=== PATIENT | male | born 1995 | race Caucasian/White ===

== ENCOUNTER 2018-01-19 16:07 | Emergency (ER) | payer MEDICAID ==
[~2018-01-19] VITALS: Ht 167.6 cm; Wt 90.7 kg
[2018-01-19 16:11] VITALS: BP 126/65
--- NOTE | 2018-01-19 16:14 | NUR ---
PT AMBULATED TO BED 7, REPORT TO MINGO LOPEZ
--- NOTE | 2018-01-19 16:35 | NUR ---
PT. CAME INTO THE ED FOR A MED REFILL FOR R HAND PAIN. PT. STATES " I NEED MEDICATION AFTER I LOST MY PRESCRIPTION FOR R HAND , I INJURED IT LIKE A WEEK AGO. 01/16 R HAND PAIN AND DESCRIBED SHARP. NO SWELLING NOTED TO R HAND CAP REFILL LESS THAN 3 SEC. ER MD NOTIFIED. WILL CONTINUE TO MONITOR.
[2018-01-19 17:28] VITALS: BP 126/65
--- NOTE | 2018-01-19 17:28 | NUR ---
Patient discharged with v/s stable. Written and verbal after care instructions given and explained. Patient alert, oriented and verbalized understanding of instructions. Ambulatory with steady gait. All questions addressed prior to discharge. ID band removed. Patient advised to follow up with PMD. Rx of BENYDRYL 1%-0.1% TOPICAL, NAPROSYN given. Patient educated on indication of medication including possible reaction and side effects. Opportunity to ask questions provided and answered.
== END 2018-01-19 17:28 | disposition home or self-care (01) ==
LOC: MED 16:07
DX: L25.9 Unspecified contact dermatitis, unspecified cause (principal); M25.531 Pain in right wrist; J45.909 Unspecified asthma, uncomplicated
CPT/HCPCS: 99283

== ENCOUNTER 2019-05-23 14:53 | Emergency (ER) | payer MEDICAID ==
[~2019-05-23] VITALS: Ht 167.6 cm; Wt 99.3 kg
[2019-05-23 14:55] VITALS: BP 128/90
--- NOTE | 2019-05-23 14:58 | NUR ---
TO LOBBY A/W BED AMBULATORY
--- NOTE | 2019-05-23 15:41 | NUR ---
BIB SELF C/O PENILE PAIN & REDNESS FOR 2 WEEKS. PATIENT STATES PAIN OF 0/10 AT THIS TIME. PATIENT POSITIONED FOR COMFORT; HOB ELEVATED; BEDRAILS UP X1; BED DOWN. ER MD MADE AWARE OF PT STATUS.
[2019-05-23 15:57] LABS: APPEARANCE,URINE CLEAR (CLEAR); BILIRUBIN,URINE NEGATIVE (NEGATIVE); BLOOD, URINE NEGATIVE (NEGATIVE); COLOR,URINE YELLOW (YELLOW); LEUKOCYTE ESTERASE ,URINE NEGATIVE (NEGATIVE); NITRITE, URINE NEGATIVE (NEGATIVE); PH,URINE 7.5 (5.0-9.0); UGLUCOSE NEGATIVE (NEGATIVE)
[2019-05-23 17:45] VITALS: BP 119/78
--- NOTE | 2019-05-23 17:45 | NUR ---
Patient discharged with v/s stable. Written and verbal after care instructions given and explained. Patient alert, oriented and verbalized understanding of instructions. Ambulatory with steady gait. All questions addressed prior to discharge. ID band removed. Patient advised to follow up with PMD. Rx of PROAIR HFA&BACTRIM given. Patient educated on indication of medication including possible reaction and side effects. Opportunity to ask questions provided and answered.
== END 2019-05-23 17:45 | disposition home or self-care (01) ==
LOC: MED 14:53
DX: N48.1 Balanitis (principal); J45.909 Unspecified asthma, uncomplicated; F12.10 Cannabis abuse, uncomplicated; Z98.890 Other specified postprocedural states
CPT/HCPCS: 81003; 99283; 99284

== ENCOUNTER 2019-12-07 07:45 | Emergency (ER) | payer MEDICAID ==
[~2019-12-07] VITALS: Ht 167.6 cm; Wt 79.4 kg
[2019-12-07 07:57] VITALS: BP 121/84
--- NOTE | 2019-12-07 08:00 | NUR ---
states he is homeless but allowed to sleep at friends house in [place]
[2019-12-07 08:04] VITALS: BP 121/84
== END 2019-12-07 08:04 | disposition home or self-care (01) ==
LOC: MED 07:45
DX: R06.02 Shortness of breath (principal); Z76.0 Encounter for issue of repeat prescription; J45.909 Unspecified asthma, uncomplicated; Z98.890 Other specified postprocedural states
CPT/HCPCS: 99283

== ENCOUNTER 2019-12-31 19:40 | Emergency (ER) | payer MEDICAID ==
[~2019-12-31] VITALS: Ht 167.6 cm; Wt 68.0 kg
[2019-12-31 19:49] VITALS: BP 134/71
[2019-12-31] MEDS ORDERED: NACL 0.9% 1,000 ML IV ONE (20:00)
[2019-12-31 21:07] VITALS: BP 114/65
== END 2019-12-31 21:07 | disposition home or self-care (01) ==
LOC: MED 19:40
DX: J45.909 Unspecified asthma, uncomplicated (principal)
CPT/HCPCS: 71045; 93005; 99283

== ENCOUNTER 2020-02-03 08:16 | Emergency (ER) | payer MEDICAID ==
[~2020-02-03] VITALS: Ht 167.6 cm; Wt 113.4 kg
[2020-02-03 08:21] VITALS: BP 135/76
--- NOTE | 2020-02-03 08:26 | NUR ---
PATIENT AMBULATED TO BED 3.
--- NOTE | 2020-02-03 09:02 | NUR ---
DR. WHITING EVALUATING PT AT BEDSIDE
--- NOTE | 2020-02-03 09:08 | NUR ---
PT SEEN AND DISCHARGED BY DOCTOR WHITING. NO NURSING CARE/SERVICES PROVIDED.
--- NOTE | 2020-02-03 09:08 | NUR ---
Patient discharged with v/s stable. Written and verbal after care instructions given and explained. Patient alert, oriented and verbalized understanding of instructions. Ambulatory with steady gait. All questions addressed prior to discharge. ID band removed. Patient advised to follow up with PMD. Rx of PREDNISONE AND ALBUTEROL given. Patient educated on indication of medication including possible reaction and side effects. Opportunity to ask questions provided and answered.
[2020-02-03 09:12] VITALS: BP 135/76
== END 2020-02-03 09:08 | disposition home or self-care (01) ==
LOC: MED 08:16
DX: J45.909 Unspecified asthma, uncomplicated (principal); Z76.0 Encounter for issue of repeat prescription
CPT/HCPCS: 99283

== ENCOUNTER 2020-02-19 19:09 | Emergency (ER) | payer MEDICAID ==
[~2020-02-19] VITALS: Ht 167.6 cm; Wt 99.8 kg
--- NOTE | 2020-02-19 19:12 | NUR ---
PT AMBULATED TO BED 4 WITH STEADY GAIT
[2020-02-19 19:14] VITALS: BP 115/72
--- NOTE | 2020-02-19 19:18 | NUR ---
24 Y/O MALE C/O OUT OF INHALER FOR THE PAST 2 WEEKS AND NEEDING RX REFILL; SUBJECTIVE ASTHMA EXACERBATION PT DOES NOT APPEAR TO BE IN ANY DISTRESS, RR 2O EVEN AND UNLABORED; O2 SAT 97% ROOM AIR; PT TALKING IN FULL SENTENCES; DENIES N/V/D; SKIN IS PINK/WARM/DRY; AAOX4 WITH EVEN AND STEADY GAIT; HR EVEN AND REGULAR; PT DENIES ANY FEVER, CP, OR COUGH AT THIS TIME; PATIENT STATES PAIN OF 0/10 AT THIS TIME; VSS; PATIENT POSITIONED FOR COMFORT; HOB ELEVATED; BEDRAILS UP X2; BED DOWN AND LOCKED PMH: ASTHMA NKA
[2020-02-19 19:48] VITALS: BP 115/72
== END 2020-02-19 19:48 | disposition home or self-care (01) ==
LOC: MED 19:09
DX: J45.909 Unspecified asthma, uncomplicated (principal); Z76.0 Encounter for issue of repeat prescription
CPT/HCPCS: 99281

== ENCOUNTER 2020-03-06 15:26 | Emergency (ER) | payer MEDICAID ==
[~2020-03-06] VITALS: Ht 167.6 cm; Wt 89.4 kg
[2020-03-06 15:36] VITALS: BP 113/82
--- NOTE | 2020-03-06 15:49 | NUR ---
24 y/o male from home c/o sob since this morning. Pt states he ran out of asthma medication. Denies chest pain. RR even and unlabored, no cough noted at this time. Afebrile upon arrival. Lung sounds clear throughout
--- NOTE | 2020-03-06 15:50 | NUR ---
RT at bedside for intervention
[2020-03-06] MEDS: ALBUTEROL SULFATE/IPRATROPIU 3 ML SOL IH ONE (15:51)
[2020-03-06 16:08] VITALS: BP 113/82
== END 2020-03-06 16:08 | disposition home or self-care (01) ==
LOC: MED 15:26
DX: J45.901 Unspecified asthma with (acute) exacerbation (principal); Z76.0 Encounter for issue of repeat prescription
CPT/HCPCS: 94640; 99283

== ENCOUNTER 2020-03-23 13:30 | Emergency (ER) | payer MEDICAID ==
[~2020-03-23] VITALS: Ht 170.2 cm; Wt 89.8 kg
[2020-03-23 13:31] VITALS: BP 123/76
--- NOTE | 2020-03-23 13:36 | NUR ---
amb to bed 07
--- NOTE | 2020-03-23 13:42 | NUR ---
PATIENT PRESENTS TO ED WITH requesting inhaler prescription refilled.PT STATES HE RAN OUT TODAY. DENIES N/V/D; SKIN IS PINK/WARM/DRY; AAOX4 WITH EVEN AND STEADY GAIT; LUNGS CLEAR BL; HR EVEN AND REGULAR; PT DENIES ANY FEVER, CP, SOB, OR COUGH AT THIS TIME; PATIENT STATES PAIN OF 0/10 AT THIS TIME; VSS; PATIENT POSITIONED FOR COMFORT; HOB ELEVATED; BEDRAILS UP X2; BED DOWN. ER MD MADE AWARE OF PT STATUS.
[2020-03-23 13:57] VITALS: BP 123/76
== END 2020-03-23 13:58 | disposition home or self-care (01) ==
LOC: MED 13:30
DX: J45.901 Unspecified asthma with (acute) exacerbation (principal)
CPT/HCPCS: 99283

== ENCOUNTER 2020-04-06 08:25 | Emergency (ER) | payer MEDICAID ==
[~2020-04-06] VITALS: Ht 167.6 cm; Wt 93.4 kg
[2020-04-06 08:29] VITALS: BP 124/84
[2020-04-06 08:51] VITALS: BP 124/84
== END 2020-04-06 08:50 | disposition home or self-care (01) ==
LOC: MED 08:25
DX: J45.909 Unspecified asthma, uncomplicated (principal); F41.9 Anxiety disorder, unspecified; F17.210 Nicotine dependence, cigarettes, uncomplicated
CPT/HCPCS: 99283